=== PATIENT | female | born 1960 | race African-American/Black ===

== ENCOUNTER 2017-11-21 19:54 | Emergency (ER) | payer OTHER ==
[2017-11-21 20:03] VITALS: BP 256/122; PULSE 86; RESP 18; TEMP 97.6; O2SAT 99
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
[2017-11-21 20:49] VITALS: BP 211/98; PULSE 76; RESP 18; O2SAT 100
[2017-11-21] MEDS ORDERED: GABA300C5 PO (20:53)
[2017-11-21] MEDS ORDERED: ACETAMINOPHEN/HYDROcodone 325 MG/5 MG TAB PO ONE (21:00)
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
[2017-11-21 21:50] VITALS: BP 191/81; PULSE 79; RESP 18; O2SAT 100
[2017-11-21 22:55] VITALS: BP 177/84; PULSE 73; RESP 18; O2SAT 99
[2017-11-22] MEDS ORDERED: HYDR-3288 PO (13:25)
== END 2017-11-21 23:17 | disposition home or self-care (01) ==
LOC: NEPC 19:54
DX: S89.91XA Unspecified injury of right lower leg, initial encounter (principal); E11.9 Type 2 diabetes mellitus without complications; I10 Essential (primary) hypertension; V49.49XA Driver injured in collision with other motor vehicles in traffic accident, initial encounter
CPT/HCPCS: 73564; 99283